=== PATIENT | male | born 1995 | race African-American/Black ===

== ENCOUNTER 2023-02-28 21:14 | Emergency (ER) | payer OTHER ==
[~2023-02-28] VITALS: Ht 170.2 cm; Wt 78.0 kg
[2023-02-28 21:20] VITALS: BP 125/58; PULSE 101; RESP 19; TEMP 98.2; O2SAT 98
[2023-02-28] MEDS ORDERED: BENZ200C4 PO (22:54)
[2023-03-01 00:53] VITALS: PULSE 94; RESP 14; O2SAT 99
== END 2023-03-01 00:53 | disposition home or self-care (01) ==
LOC: MED 21:14
DX: J20.8 Acute bronchitis due to other specified organisms (principal); B97.89 Other viral agents as the cause of diseases classified elsewhere; Z79.899 Other long term (current) drug therapy
CPT/HCPCS: 99283